=== PATIENT | female | born 1975 | race Caucasian/White ===

== ENCOUNTER 2016-09-27 18:03 | Emergency (ER) | payer OTHER | END 2016-09-27 20:50 | disposition home or self-care (01) | LOC: ER1 18:03 | DX: S93.621A Sprain of tarsometatarsal ligament of right foot, initial encounter (principal); S93.509A Unspecified sprain of unspecified toe(s), initial encounter; E03.9 Hypothyroidism, unspecified; X58.XXXA Exposure to other specified factors, initial encounter; Y93.01 Activity, walking, marching and hiking; Y92.828 Other wilderness area as the place of occurrence of the external cause; Z79.899 Other long term (current) drug therapy | CPT/HCPCS: 73630; 99283 ==

== ENCOUNTER → 2016-11-27 | Outpatient (CLI) | payer OTHER | LOC: KOH-I 08:00 | DX: M84.371A Stress fracture, right ankle, initial encounter for fracture (principal) | CPT/HCPCS: 73721 ==